=== PATIENT | female | born 1960 | race Caucasian/White ===

== ENCOUNTER 2020-06-30 16:25 | Inpatient (IN) | payer OTHER, SELFPAY ==
[2020-06-30] VITALS (33 sets, daily range): BP systolic 0–217; BP diastolic 0–88; PULSE 0–131; RESP 12–29; TEMP 33.2–38.4; O2SAT 97–100; BMI 24.9
--- NOTE | ~2020-06-30 | XR_ITS ---
EXAMINATION: XR abdomen/kub 1V DATE: 07/01/2020 02:59 INDICATION: Abdominal distention. TECHNIQUE: A supine view of the abdomen on 2 radiographs was obtained. COMPARISON: Abdomen radiograph 06/30/2020 FINDINGS: The small bowel is normal in caliber. There is mild gaseous distention of the colon. The na sogastric tube tip is in the stomach. IMPRESSION: 1. Mild gaseous distention of the colon, likely adynamic ileus. Reviewed, dictated and finalized at location A.
--- NOTE | ~2020-06-30 | XR_ITS ---
EXAMINATION: XR chest 1V portable DATE: 07/02/2020 05:31 INDICATION: Respiratory failure. TECHNIQUE: A single frontal view of the chest was obtained. COMPARISON: Chest single view 06/30/2020 FINDINGS: The lungs are hyperexpanded, consistent with emphysema. There is mild scarring at the lung apices. No pleural effusion or pneumothorax. The heart size is normal. The endotracheal tube tip is 6 .7 cm above the bronson. A right internal jugular central venous catheter is seen with tip in the righ t atrium. The nasogastric tube tip is beyond the inferior margin of the radiograph, but at least to t he stomach. Waffle-pattern material overlies the patient, which decreases sensitivity. IMPRESSION: 1. Emphysema. 2. Mild scarring at the lung apices. Reviewed, dictated and finalized at location A.
--- NOTE | ~2020-06-30 | CT_ITS ---
EXAMINATION: CT brain wo con INDICATION: Fixed and dilated left pupil status post cardiac arrest COMPARISON: 1733 hours TECHNIQUE: Standard unenhanced head CT. The dose-length product (DLP) was 681.00 mGy-cm. The mA was a djusted according to patient size. Iterative reconstruction technique was employed. FINDINGS: There is no intracranial hemorrhage or abnormal mass lesion. There are developing areas of low-attenuation involving the parietal and occipital lobes and to a lesser extent the frontal and tem poral lobes. The ventricles are normal. The basal cisterns are patent. The orbits are normal. The par anasal sinuses, mastoids and calvarium are normal. IMPRESSION: 1. Evolving intracranial findings consistent with cerebral edema and/or infarction. These findings we re discussed with Jennyfer Horton PA-C at 2356 hours on 06/30/2020. Reviewed, dictated and finalized at location A. IMPRESSION: 1. Evolving intracranial findings consistent with cerebral edema and/or infarct ion. These findings were discussed with Jennyfer Horton PA-C at 2356 hours on 06/30/2020.
--- NOTE | ~2020-06-30 | XR_ITS ---
EXAMINATION: XR abdomen NG/feed tube insert EXAM DATE: 06/30/2020 16:53 INDICATION: Orogastric tube insertion. TECHNIQUE: Frontal projection(s) of the abdomen for interpretation. There is no prior study for uma mccabe. FINDINGS: Feeding tip and side-port project over the gastric bubble, adequate. Nonspecific but nonobs tructive bowel gas pattern. There is no organomegaly. IMPRESSION: Feeding tube in position. Reviewed, dictated and finalized at location A. IMPRESSION: Feeding tube in position.
--- NOTE | ~2020-06-30 | XR_ITS ---
EXAMINATION: XR chest port-a-cath/central INDICATION: Central line insertion TECHNIQUE: Portable AP view the chest is obtained at 1930 hours COMPARISON: 1649 hours FINDINGS: A right internal jugular central venous catheter has been inserted which ends with its tip at the superior cavoatrial junction. There is a pneumothorax. The endotracheal tube ends approximatel y 8 cm above the bronson. The nasogastric tube is followed as far as the stomach. The heart size is no rmal. There is no pleural effusion. Interstitial opacities persist in the upper lung zones with sligh t improvement. IMPRESSION: 1. Right internal jugular catheter insertion without pneumothorax. 2. Mild improvement in interstitial opacities of the upper lung zones which could reflect pneumonia v ersus pulmonary edema. Reviewed, dictated and finalized at location A. IMPRESSION: 1. Right internal jugular catheter insertion without pneumothorax. 2. Mild improvement in interstitial opacities of the upper lung zones which cou ld reflect pneumonia versus pulmonary edema.
--- NOTE | ~2020-06-30 | US_ITS ---
EXAMINATION: US renal BI EXAM DATE: 07/01/2020 09:48 INDICATION: Acute kidney insufficiency. TECHNIQUE: Multiple grayscale and Doppler images of the kidneys were obtained (by a technologist who performed the scan) and subsequently reviewed. There is no prior study for comparison. FINDINGS: Right kidney: There is normal contour and echogenicity. It measures 10.6 x 4.5 x 4.6 centimeters. T here are no focal renal lesions identified. Mild hydronephrosis. Left kidney: There is normal contour and echogenicity. It measures 9.7 x 5.4 x 4.9 centimeters. The re are no focal renal lesions identified. There is no hydronephrosis. Bladder not identified, reportedly Hamilton catheter was in position. IMPRESSION: Mild right hydronephrosis. Reviewed, dictated and finalized at location A. IMPRESSION: Mild right hydronephrosis.
--- NOTE | ~2020-06-30 | CT_ITS ---
EXAMINATION: CT brain wo con INDICATION: Cardiac arrest COMPARISON: None TECHNIQUE: Standard unenhanced head CT. The dose-length product (DLP) was 832.33 mGy-cm. The mA was a djusted according to patient size. Iterative reconstruction technique was employed. FINDINGS: Motion artifact slightly limits the examination. There is no intracranial hemorrhage, acute infarction, or abnormal mass lesion. The ventricles are normal. There is no abnormal mass effect or midline shift. There is questionable loss of phelan-white matter differentiation. The basal cisterns ar e patent. Changes in the globes are likely from ocular lens surgery. The paranasal sinuses, mastoids and calvarium are normal. IMPRESSION: 1. Possible loss of phelan-white matter differentiation which could reflect anoxic brain injury. Contin ued neurologic assessment is recommended. Reviewed, dictated and finalized at location A. IMPRESSION: 1. Possible loss of phelan-white matter differentiation which could reflect anoxi c brain injury. Continued neurologic assessment is recommended.
--- NOTE | ~2020-06-30 | XR_ITS ---
EXAMINATION: XR chest ET placement EXAM DATE: 06/30/2020 16:53 INDICATION: Cardiac arrest. Intubated. TECHNIQUE: Portable AP frontal chest x-ray was obtained. Comparison is made to prior examination from 03/29/2015. FINDINGS: Endotracheal tube tip is 6.5 centimeters above the bronson. This could be safely advanced 2 cm. There is a nasogastric tube seen with tip collimated off the study, but below the left hemidiaph ragm. There is upper lung zone prominent reticulation, could be edema. No confluent consolidation or pneumothorax. Cardiomediastinal silhouette is normal. Some chronic hyperinflation. IMPRESSION: 1. ET tube could be safely advanced 2 cm. 2. Symmetrical indistinct reticulation, could be pulmonary edema. Reviewed, dictated and finalized at location A.
[2020-06-30] MEDS: SODIUM CHLORIDE 0.9% IV 1,000 ML 999 ML IV CONT ×2 (16:28→16:46)
--- NOTE | 2020-06-30 16:28 | ECG_ITS ---
Measurements Intervals Terry Rate: 91 P: AL: 0 QRS: 113 QRSD: 153 T: -59 QT: 376 QTc: 464 Interpretive Statements ACCELERATED JUNCTIONAL RHYTHM FREQUENT VENTRICULAR PREMATURE COMPLEXES RIGHT AXIS DEVIATION INTRAVENTRICULAR CONDUCTION DELAY INFERIOR ST ELEVATION MYOCARDIAL INJURY- ACUTE ABNORMAL ECG Electronically Signed On 06-30-2020 16:50:32 CDT by Jer Corrales D.O.
--- NOTE | 2020-06-30 16:41 | ED.CPR ---
HPI - CPR General Chief Complaint: Cardiac Arrest/CPR Stated Complaint: ROSC History of Present Illness HPI narrative: About an hour prior to arrival she was on the phone with her daughter c/o not being able to stand up without passing out. She then went unresponsive. When EMS arrived about 20 minutes later they found her unresponsive. At that time she was in V-fib. She did have ROSC. An EKG was done showing elevation in multiple leads. A STEMI was declared in the Field. She then went into asystole and CPR was resumed. On arrival here she is estimated to have been down for about 45-50 minutes. history limited by medical condition Related Data Allergies Allergy/AdvReac Type Severity Reaction Status Date / Time No Known Allergies Allergy Unverified 03/29/15 15:32 Review of Systems Review of Systems: ROS unobtainable: Yes unobtainable due to medical condition PMFSH Comments Unknown medical history Exam Const: Other: Severe distress. Unresponsive HENMT: Other: ET tube in place Eyes: Other: Pupils fixed and dilated Neck: Neck: normal visual inspection Resp: Other: Clear breath sounds with bagging Cardio: Other: Pulseless GI: GI Palp: Yes Soft to palpation Skin: Other: mottled Neuro: Other: unresponsive Course Vital Signs Vital signs: Vital Signs Temperature 34.8 C L 06/30/20 16:24 Pulse Rate 0 L 06/30/20 16:24 Respiratory Rate 12 06/30/20 16:24 Blood Pressure 0/0 L 06/30/20 16:24 Pulse Oximetry 99 06/30/20 16:24 Temperature 34.8 C L 06/30/20 16:24 Pulse Rate 79 06/30/20 17:44 Respiratory Rate 12 06/30/20 16:24 Blood Pressure 47/32 L 06/30/20 16:45 Pulse Oximetry 100 06/30/20 17:44 Procedures Central Line Placement Right IJ: Central Line Date: 06/30/20 Central Line Time: 19:26 Discussed w/ the patient/family/POA,the placement of a central venous catheter, including its clinical necessity/indication & associated potential risks, benifits and alternatives.: Yes The patient/family/POA understand(s) and acknowledge(s) the need to proceed with central venous catheter insertion as an important element of the patient's clinical management.: Yes Time Out Performed: Yes Patient Placed on Monitor/Pulse Ox: Yes Max. Sterile Barrier Technique: Caps, large sterile sheet and hand hygiene Central Line Prep: 2% chlorhexidine scrub and sterile drapes applied Technique: sterile prep/drape Local Anesthetic: none Ultrasound Used for Placement: Yes Central Line Lumen Inserted: triple Post Procedure: sutured in place, good blood return, all ports aspirated, flushed, capped and sterile dressing applied Post Procedure X-Ray: tip of catheter in good position and no pneumothorax seen Patient Tolerated Procedure: well Complications: none MDM - Cardiac Arrest/CPR MDM Narrative Medical decision making narrative: Case discussed with cardiology in detail. They do not feel that she is a good candidiate for PCI given that she likely has severe hypoxic brain injury. The do loosely endorse starting heparin. I discussed the patient w/ Dr. Cedeno. He agrees that she will not likely survive and has a very poor prognosis if she does. He will accept admission if the family chooses to have us proceed. I discussed the patient's condition in detail with the family. They want to do everything possible for the time being. Medical Records Attestation: I reviewed the patient's medical records. Lab Data Attestation: I reviewed the patient's lab results. Result diagrams: 06/30/20 16:34 06/30/20 16:34 Labs: Lab Results 06/30/20 06/30/20 06/30/20 Range/Units 16:34 16:34 16:34 WBC 3.6 L (4.5-10.0) K/mm3 RBC 2.26 L (4.2-5.4) M/mm3 Hgb 7.2 L (12.0-15.0) g/dL Hct 23.6 L (37.0-47.0) % MCV 104.4 H (80-100) fl MCH 31.9 (26-34) pg MCHC 30.5 L (32-36) g/dl RDW 12.3
[2020-06-30 16:42] LABS: Hematocrit 23.6 % (37.0-47.0); Hemoglobin 7.2 g/dL (12.0-15.0); Mean Corpuscular HGB Conc 30.5 g/dl (32-36); Mean Corpuscular Hemoglobin 31.9 pg (26-34); Mean Corpuscular Volume 104.4 fl (80-100); Mean Platelet Volume 9.5 fl (7.4-10.4); Platelet Count Result 126 k/mm3 (150-375); Red Blood Count 2.26 M/mm3 (4.2-5.4); Red Cell Distribution Width 12.3 % (11.5-14.5); White Blood Count 3.6 K/mm3 (4.5-10.0)
[2020-06-30] MEDS: EPINEPHrine INJ 1 MG in DEXTROSE 5% IN WATER 250 ML 75.3 MG IV CONT (16:45)
[2020-06-30 16:51] LABS: INR 1.5; Prothrombin Time 18.7 Seconds (11.1-14.7)
[2020-06-30 16:52] LABS: Partial Thromboplastin Time 55.8 SECONDS (22.3-36.8)
[2020-06-30 16:55] LABS: Alanine Aminotransferase 114 U/L (4-35); Albumin Level 2.7 g/dL (3.5-5.1); Alkaline Phosphatase 158 U/L (38-126); Anion Gap 14 mmol/L (8-16); Aspartate Amino Transferase 195 U/L (14-36); Bilirubin,Total 0.4 mg/dL (0.2-1.3); Blood Urea Nitrogen 14 mg/dL (7-17); Calcium 7.2 mg/dL (8.4-10.2); Carbon Dioxide 16 mmol/L (22-30); Chloride 107 mmol/L (98-107); Estimated Glomerular Filt Rate 57; Glucose 238 mg/dL (65-105); Lactic Acid Reflex 5.9 mmol/L (0.7-2.1); Potassium 4.2 mmol/L (3.4-5.0); Sodium 137 mmol/L (137-145)
[2020-06-30 17:05] LABS: Band Neutrophils Percent 3 % (0-6); Eosinophils Absolute Manual 0.03 K/mm3 (0.02-0.5); Eosinophils Percent Manual 1 % (0-4); Monocytes Absolute Manual 0.18 K/mm3 (0.1-0.90); Monocytes Percent Manual 5 % (3-9); Neutrophils Absolute Manual 1.08 K/mm3 (1.7-7.2); Neutrophils Percent Manual 27 % (46-73); Nucleated Red Blood Cells 1 %; Platelet Estimate Decreased (Adequate); Total Cells Counted 100
[2020-06-30 17:06] LABS: Hypochromasia 1+ (NORMAL)
[2020-06-30 17:08] LABS: Alveolar/Arterial O2 Gradient 80.2 mmHg; Base Excess ABG -18.2 mEq/l (+/-2.0); Fractional Inspired Oxygen 80 %; Methemoglobin ABG 0.3 %THb (0-1.5); Oxygen Content ABG 14.9 %vol (16.0-22.0); Oxygen Saturation ABG 99.7 % (95.0-100.0); Oxyhemoglobin 96.3 % THb (90.0-100.0); PO2 ABG 430.4 mmHg (80.0-100.0); PO2 FiO2 Ratio Arterial Blood 5.38 %; Reduced Hemoglobin 0.4 %THb (0-5.0); Total Hemoglobin 10.1 g/dL (12.0-18.0)
[2020-06-30 17:09] LABS: Arterial Blood Gas PEEP 5 cmH2O; Arterial Blood Gas Tidal Volume 500 ml; Arterial Blood Gas Vent Mode ASSIST CONTROL; Arterial Blood Gas Ventilator rate 16 /MIN; Device VENTILATOR; Modified Allen's Test Pass; Site Drawn LEFT RADIAL; pH ABG 6.975 (7.350-7.450)
[2020-06-30 17:10] LABS: NT Pro B Type Natriuretic Pept 3150 PG/ML (5-100)
--- NOTE | 2020-06-30 17:11 | PC.NURSE ---
agustín from lab called and states that pt has critical Tropion . Passed this on to charge nurse Coleen
[2020-06-30 17:15] LABS: Glucose Point of Care 308 (65-105)
[2020-06-30] MEDS: SODIUM BICARBONATE 8.4% 50 MEQ/50 ML SYRINGE 100 MEQ IV PUSH (17:18)
--- NOTE | 2020-06-30 17:45 | PM.IMHP ---
H&P: HPI History of Present Illness Date/Time: 06/30/20 17:45. The patient was seen and evaluated in the emergency department. Chief Complaint: Cardiac arrest. Narrative: This is a 59-year-old female smoker with COPD, hypercholesterolemia, and hypertension who presented to the emergency department earlier today via EMS from home in cardiac arrest. She and her spent about 8 days in [place], [place] and flew home sometime last week. According to her , she was doing really well in [place] and was ?the best I have seen her in a long time.? The patient's sister somewhat contraindicates this statement and tells me that the patient ?has been sick for a long time.? It sounds as though the patient has pretty significant COPD which causes her to get out of breath with daily activities. She is fatigued a majority of the time and in fact relies on energy drinks (consuming 6 to 8 per day) and Wal-Phed D (pseudoephedrine) 3 to 4 times per day at a higher dose than recommended. Upon her return from [place], the patient told her sister that she was feeling unwell with whole body aches, intermittent ?sternum pain? and dizziness with standing to the point where she has been sitting in a chair or lying down a majority of the time due to near-syncope. Family members go on to say that she has intermittently complained of shortness of breath and chest pain for some time at which they are not able to qualify. The patient reportedly continued to refuse to go to the doctor for evaluation. In any event, she was last seen in her usual state of health by her this morning when he got home from working overnight. She made him something for lunch and he retired to bed. A couple of hours later while on the telephone with her daughter, the patient reported that she was having episodes of dizziness and during the conversation her speech became slurred and she stopped responding. Daughter attempted to call the patient's and when he did not answer she called 911. Around 25 minutes had passed before the patient's daughter heard voices of EMS personnel in the background. Her was wakened to the sound of EMS entering her home. At that time the patient was found unresponsive on the couch and she received multiple defibrillations for VFib. Eventually ROSC was achieved and a 12 lead EKG demonstrated sinus bradycardia with ST elevations in the inferior leads with reciprocal changes in the anterior lateral leads. A STEMI was called in the field an en route to the hospital she went into asystole and CPR was once again resumed. CPR continued in the emergency department and several times the patient went into asystole or PEA before ROSC was once again obtained. By this time it was nearly 1 hour since she first went unresponsive. Unfortunately even with ROSC her blood pressures were very low and she has since been started on epinephrine drip. At the time my evaluation she is unresponsive and on no sedation. Neurologic exam is concerning with absence of corneal, cough, and gag reflexes. Review of Systems Review of Systems: Narrative: Unable to be obtained given her current clinical condition. 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 Chronic obstructive pulmonary disease Drug abuse The patient abuses [id number] pseudoephedrine and doses herself more than recommended 3 to 4 times per day. Hypercholesterolemia Hypertension Nicotine dependence Surgical History Surgical History (Updated 06/30/20 @ 23:09 by Jennyfer Horton PA-C) History of bilateral cataract extraction Family History Family History Mother Acute myocardial infarction ACS (acute coronary syndrome) Cerebrovascular accident Uterine cancer Cervical cancer Daughter AICD (automatic cardioverter/defibr
--- NOTE | 2020-06-30 18:02 | PM.CNCAR ---
Assessment and Plan Assessment and plan (1) Anoxic encephalopathy: Code(s): G93.1 - Anoxic brain damage, not elsewhere classified Status: Acute Assessment and Plan: Out of hospital VF arrest s/p multiple defibrillations with prolonged unresponsiveness, hypoperfusion, brief ROSC followed by asystole and repeated CPR, respiratory failure, shock with evidence of inferior ST elevations on EKG. Case discussed and EKG reviewed with Dr. Perez of Interventional Cardiology, patient not deemed a candidate for emergent coronary angiography given prolonged and ongoing resuscitation efforts with evidence of severe anoxic injury with estimated 30 minutes of VF prior to EMS arrival, persistent unresponsiveness despite pulse and intubation, infrequent isolated agonal breaths. CT head without bleeding but suggestion of loss of phelan-white matter differentiation concerning for anoxic brain injury. I updated patient's , sister, daughter, brother, and son-in-law regarding patient's condition, evidence severe anoxic brain injury secondary to prolonged ventricular fibrillation and ongoing resuscitative efforts. I reassured pt's family and most directly her daughter (who was on the phone with her mother when she collapsed) there was nothing she could have done to change this course. I explained that her mother had a pulse but has a low blood pressure and is not showing signs of significant neurologic activity at the time of my last assessment. I discussed the poor prognosis given prolonged anoxic brain injury that cannot be reversed with coronary angiography and low likelihood of survival. I reviewed their account of the history and as related by EMS, the ED attending. Discussed that as per discussion with Dr. Perez that emergent cardiac cath likelihood of survival with procedure is low and is not expected to alter her prognosis or neurologic recovery in light of the prolonged initial time in ventricular fibrillation which is incompatible with life preserving perfusion. In response to their questions I explained how VF results in a situation where the body and brain are not receiving necessary blood flow or oxygenation with causes severe and potentially irreversible harm not only the body but most importantly the brain. All questions answered to their satisfaction. The verbalized appreciation for communicating with them and care. I expressed my deepest sympathies regarding this very unfortunate and tragic situation. They indicated they understood the circumstances and verbalized how little can be done to reverse the estimated 45-60 min of inadequate perfusion to her brain and that her neurologic status is the most critical issue. I also explained I wanted to update them, answer any questions they may have as I did not want them to be unformed as to her status as they had not been updated the ED physician. I informed them of the extent of my involvement and discussions with Interventional Cardiology as I came to assess the patient initially but that I cannot/do not perform cardiac interventions. (2) VF (ventricular fibrillation): Code(s): I49.01 - Ventricular fibrillation Status: Acute Assessment and Plan: as above. Hypothermia protocol per ED/Critical Care to provide support for any meaningful neurologic recovery. (3) STEMI (ST elevation myocardial infarction): Code(s): I21.3 - ST elevation (STEMI) myocardial infarction of unspecified site Status: Acute Assessment and Plan: By EKG criteria for inferior STEMI. Family reports at least weeks of patient feeling poorly with progressive SOB prior to out of hospital arrest. Heparin gtt, ASA, statin. (4) Shock: Code(s): R57.9 - Shock, unspecified Status: Acute Assessment and Plan: Epinephrine gtt pressor support. cardiogenic. Severe anemia, mild thrombocytopenia on CBC also highly concerning. Repeat CBC and follow. Check coags PT/INR. Lactic acid eleva
--- NOTE | 2020-06-30 18:27 | PC.NURSE ---
1625 EMS arrived to room, CPR continued in progress with mechanical compressions. 1626 epi given 1628 pulse check, PEA, continue CPR 1629 epi given 1631 pulse check, pulse back, ROSC, sinus rhythm
[2020-06-30 19:39] LABS: Reflex Lactic Acid Yes or No Add Lactic
--- NOTE | 2020-06-30 19:42 | PC.NURSE ---
Pt. blood pressure improving. Epi dripped paused. ERP aware and is ok with order.
[2020-06-30] MEDS: HEPARIN SODIUM 5,000 UNITS/ML VIAL 4000 UNITS IV PUSH (19:55)
[2020-06-30] MEDS: HEPARIN SOD/D5W 100 UNITS/ML 25,000 UNITS/250 ML BAG 8 UNITS IV CONT (19:57)
[2020-06-30] MEDS: PROPOFOL IV EMULSION 100 ML 2.38 MG IV CONT (20:55)
--- NOTE | 2020-06-30 21:48 | ADMGEN ---
This patient, Angelia Huitron, was admitted to Intensive Care Unit-9 on 06-30-20 at 2140. Patient/family oriented to hospital policies and general routines including ID bracelet, bed and alarms, visiting hours, pain management, procedures, bathroom and other care routines, personal items, smoking policy, room service/diet, and visiting hours. Information on how to activate the Rapid Response Team has been discussed. Patient/Family are encouraged to report perceived risks to care and to ask questions if they do not understand what they are told or what they should do.
--- NOTE | 2020-06-30 22:00 | ADMGEN ---
This patient, Angelia Huitron, was admitted to Intensive Care Unit-9. Patient/family oriented to hospital policies and general routines including ID bracelet, bed and alarms, visiting hours, pain management, procedures, bathroom and other care routines, personal items, smoking policy, room service/diet, and visiting hours. Information on how to activate the Rapid Response Team has been discussed. Patient/Family are encouraged to report perceived risks to care and to ask questions if they do not understand what they are told or what they should do.
[2020-06-30 22:48] LABS: Partial Thromboplastin Time 194.7 SECONDS (22.3-36.8)
[2020-06-30 23:01] LABS: Alveolar/Arterial O2 Gradient 70.2 mmHg; Base Excess ABG -10.8 mEq/l (+/-2.0); Fractional Inspired Oxygen 45 %; HCO3 ABG 16.1 mEq/l (22.0-26.0); Methemoglobin ABG 0.3 %THb (0-1.5); Oxygen Content ABG 20.4 %vol (16.0-22.0); Oxygen Saturation ABG 99.2 % (95.0-100.0); Oxyhemoglobin 97.3 % THb (90.0-100.0); PCO2 ABG 39.2 mmHg (35.0-45.0); PO2 ABG 206.1 mmHg (80.0-100.0); PO2 FiO2 Ratio Arterial Blood 4.58 %; Reduced Hemoglobin 0.4 %THb (0-5.0); Total Hemoglobin 14.6 g/dL (12.0-18.0)
[2020-06-30 23:02] LABS: Arterial Blood Gas PEEP 5 cmH2O; Arterial Blood Gas Tidal Volume 500 ml; Arterial Blood Gas Vent Mode CMV; Arterial Blood Gas Ventilator rate 16 /MIN; Device VENTILATOR; Modified Allen's Test Unable to perform; Site Drawn RIGHT RADIAL; pH ABG 7.231 (7.350-7.450)
[2020-06-30 23:12] LABS: Hematocrit 42.7 % (37.0-47.0); Hemoglobin 14.3 g/dL (12.0-15.0); Mean Corpuscular HGB Conc 33.5 g/dl (32-36); Mean Corpuscular Hemoglobin 32.2 pg (26-34); Mean Corpuscular Volume 96.2 fl (80-100); Mean Platelet Volume 9.2 fl (7.4-10.4); Platelet Count Result 329 k/mm3 (150-375); Red Blood Count 4.44 M/mm3 (4.2-5.4); Red Cell Distribution Width 12.3 % (11.5-14.5); White Blood Count 22.8 K/mm3 (4.5-10.0)
[2020-06-30 23:17] LABS: INR 1.3; Prothrombin Time 16.4 Seconds (11.1-14.7)
[2020-06-30 23:25] LABS: Lactic Acid Reflex 4.3 mmol/L (0.7-2.1)
[2020-06-30 23:26] LABS: Alanine Aminotransferase 333 U/L (4-35); Albumin Level 3.9 g/dL (3.5-5.1); Alkaline Phosphatase 436 U/L (38-126); Anion Gap 12 mmol/L (8-16); Bilirubin,Total 0.9 mg/dL (0.2-1.3); Blood Urea Nitrogen 24 mg/dL (7-17); Calcium 8.6 mg/dL (8.4-10.2); Carbon Dioxide 20 mmol/L (22-30); Chloride 106 mmol/L (98-107); Estimated CRCL calculation 23 ml/min; Estimated Glomerular Filt Rate 23; Glucose 109 mg/dL (65-105); Magnesium 2.8 mg/dL (1.6-2.3); Potassium 5.1 mmol/L (3.4-5.0); Sodium 138 mmol/L (137-145); Troponin I > 80.000 ng/mL (0.000-0.034)
[2020-06-30 23:55] LABS: Aspartate Amino Transferase 900 U/L (14-36); Creatine Kinase 5763 U/L (30-135)
[2020-06-30] MEDS: NOREPINEPHRINE 8 MG/D5W 250 ML 8 MG/250 ML BAG 18.75 MG IV CONT (23:55)
[2020-06-30] MEDS: LACTATED RINGERS 1,000 ML 100 ML IV CONT (23:57)
[2020-07-01] VITALS (58 sets, daily range): BP systolic 74–154; BP diastolic 40–100; PULSE 74–103; RESP 17–33; TEMP 31.9–38.4; O2SAT 91–100; BMI 25.2
[2020-07-01] LABS: Hemoglobin A1C 5.5 % (<5.7)
[2020-07-01] MEDS: SODIUM BICARBONATE 8.4% 150 MEQ in DEXTROSE 5% 1,000 ML 950 ML 75 MEQ IV CONT (01:08)
[2020-07-01] MEDS: CENTRAL LINE FLUSH 10 ML IV PUSH ×5 (01:28→21:00)
--- NOTE | 2020-07-01 01:35 | WPDPROCEDUR ---
Procedures Arterial Line Arterial Line Date: 07/01/20 Arterial Line Time: 00:45 Perfomed Emergently - Given emergent patient conditions, temporal constraints may have precluded informed consent: Yes Time Out Performed: Yes Patient Position: other (Vascular position) [employer] Prep: sterile gown, sterile gloves, mask and hat Site: left, right and femoral Site Prep: chlorhexidine and sterile drape Technique used: ultrasound-guided Size (Gauge): 20 Length: 12 cm Closure/Dressing: suture, transparent dressing, hemostatic product, antimicrobial product and securement product Patient tolerated procedure: well Additional comments: Initially a right femoral arterial line was attempted. Arterial blood return was obtained on both attempts however the guidewire would not feed and was kinking. Subsequently the left groin was prepped and the left femoral artery was accessed. Her turn of pulsatile blood return guidewire advanced easily. His catheter advanced over guidewire without difficulty. Return of arterial blood flow through arterial line. Line was secured with sutures. Sterile dressing was applied. Attempt to maintain sterile technique was made throughout the entire procedure. Sterile ultrasound probe cover was used.
--- NOTE | 2020-07-01 01:40 | P.PNCROSS_ITS ---
Event Note Event Note Event Note: Nursing staff notified me while I was in the unit that the patient was hypotensive just before midnight. Patient was on cooling protocol. The patient had just returned from a repeat CT of the brain which demonstrated worsening/evolving anoxic brain injury. Patient had epinephrine infusing but was tachycardic with heart rates in the 110s. Levophed was ordered as patient blood pressure was 70/58. The I placed a arterial line. The patient's Levophed was increased to 20 during the course of the procedure her as her blood pressures again dropped to the 50s. With increased Levophed the patient's blood pressure improved to low 100s systolic. The patient's labs were reviewed and demonstrated there hemoglobin 8 jumped from 7 up to 14. She had evidence of shocked liver. Her PTT was elevated at 194. The patient's heparin drip had been discontinued due to about 300 mL of frankly bloody drainage from patient's OG tube. Her abdomen had become markedly more distended since admission. The patient remains unresponsive to painful stimuli. She had been on propofol which has been discontinued. All labs and imaging studies have been reviewed Assessment and plan: 1. cardiogenic shock: Patient has been initiated on pressor therapy with Levophed. Her blood pressures have improved. Arterial line has been placed for close monitoring of blood pressures. Director Of Corporate Sponsorships was contacted and updated as to the patient's condition and clinical course. He agrees with current plan of care. 2. Supratherapeutic PTT evidence of upper GI bleeding: Heparin drip has been discontinued. Will monitor H&H closely. However patient is H&H has paradoxically increased up to 14. Protonix has been ordered. 3. Anoxic brain injury with cerebral edema: Mannitol has been ordered per protocol. Overall poor prognosis. 35 minutes spent in critical care activities in exclusion of procedures. Due to a high probability of clinically significant, life threatening deterioration, the patient required my highest level of preparedness to intervene emergently and I personally spent this critical care time directly and personally managing the patient. This critical care time included obtaining a history; examining the patient; pulse oximetry; ordering and review of studies; arranging urgent treatment with development of a management plan; evaluation of patient's response to treatment; frequent reassessment; and discussions with other providers. It was exclusive of separately billable procedures and treating other patients and teaching time. Please see Assessment and Plan section and the rest of the note for further information on patient assessment and treatment.
--- NOTE | 2020-07-01 01:56 | ECHO_ITS ---
Patient Info Name: Angelia Huitron Age: 59 years : 1960 Gender: Female Ht: 66 in Wt: 156 lbs BSA: 1.83 m2 BP: 136 / 57 mmHg Heart Rhythm: Sinus Rhythm Exam Date: 07/01/2020 7:18 AM Exam Location: [facility] Patient Status: Inpatient Admit Date: 06/30/2020 Staff Ordering Physician: Suzan Ryan DO Full Stack Software Engineer: Alber Nunn RDCS, RT Attending Provider: Jhon Nelson MD Referring Physician: Connor FIELD; Exam Type: CA echo doppler color flow Study Info Indications I46.9 - Cardiac arrest, cause unspecified Complete two-dimensional, color flow and Doppler transthoracic echocardiogram is performed. Strain analysis performed. Summary 1. Complete two-dimensional, color flow and Doppler transthoracic echocardiogram is performed. 2. Left ventricular systolic function is mildly reduced, estimated at 45-50%. There is hypokinesis of the mid and basal inferior and basal inferolateral kerns. 3. Left ventricular chamber dimension is normal. 4. There is mildly increased left ventricular wall thickness. 5. The left ventricular diastolic function is grade I diastolic dysfunction. 6. There is mild aortic valve regurgitation. 7. There is mild mitral valve regurgitation. 8. There is mild tricuspid valve regurgitation. 9. No pulmonary hypertension, estimated pulmonary arterial systolic pressure is 25 mmHg. Left Ventricle Left ventricular systolic function is mildly reduced, estimated at 45-50%. There is hypokinesis of the mid and basal inferior and basal inferolateral kerns. Left ventricular chamber dimension is normal. There is mildly increased left ventricular wall thickness. The left ventricular diastolic function is grade I diastolic dysfunction. Global longitudinal strain is moderately elevated at -11 %. Right Ventricle Right ventricular chamber dimension is normal. Right ventricular systolic function is reduced. Left Atria Left atrial chamber dimension is normal. Right Atria Right atrial chamber dimension is normal. Aortic Valve The aortic valve is not well visualized. There is no aortic valve stenosis. There is mild aortic valve regurgitation. Pulmonic Valve The pulmonic valve is not well visualized. Mitral Valve The mitral valve has normal leaflets. There is mild mitral valve regurgitation. Tricuspid Valve The tricuspid valve leaflets are normal. There is mild tricuspid valve regurgitation. No pulmonary hypertension, estimated pulmonary arterial systolic pressure is 25 mmHg. Pericardium/Pleural The pericardium appears normal. There is trivial pericardial effusion. Inferior Vena Cava Normal inferior vena cava with >50% collapse upon inspiration consistent with normal right atrial pressure, 5 mmHg. Aorta The aortic root size at the sinus of Valsalva is normal. Left Ventricular Outflow Tract Name Value Normal LVOT 2D LVOT Diameter 2.0 cm LVOT Doppler LVOT Peak Gradient 5 mmHg LVOT Mean Gradient 2 mmHg LVOT VTI 16 cm LVOT VTI/AV VTI Ratio 0.8
[2020-07-01 02:21] LABS: Alveolar/Arterial O2 Gradient 25.7 mmHg; Carboxyhemoglobin 2.1 % THb (0-2.0); Fractional Inspired Oxygen 30 %; Methemoglobin ABG 0.2 %THb (0-1.5); Oxygen Content ABG 17.3 %vol (16.0-22.0); Oxygen Saturation ABG 97.8 % (95.0-100.0); Oxyhemoglobin 96.2 % THb (90.0-100.0); PCO2 ABG 40.2 mmHg (35.0-45.0); Reduced Hemoglobin 1.5 %THb (0-5.0); Total Hemoglobin 12.6 g/dL (12.0-18.0); pH ABG 7.094 (7.350-7.450)
[2020-07-01 02:22] LABS: Arterial Blood Gas PEEP 5 cmH2O; Arterial Blood Gas Tidal Volume 450 ml; Arterial Blood Gas Vent Mode CMV; Arterial Blood Gas Ventilator rate 22 /MIN; Device VENTILATOR; Site Drawn ARTLINE
[2020-07-01] MEDS: SODIUM BICARBONATE 8.4% 50 MEQ/50 ML SYRINGE 100 MEQ IV PUSH ×2 (02:57→08:18)
[2020-07-01 03:14] LABS: Folic Acid > 20.0 ng/mL (2.76->20); Vitamin B12 > 1000.0 pg/mL (239-931)
[2020-07-01 03:15] LABS: Iron 17 ug/dL (37-170); Percent Iron Saturation 17 % (20-50)
[2020-07-01 03:43] LABS: Glucose Point of Care 117 (65-105)
[2020-07-01 04:30] LABS: Glucose Point of Care 155 (65-105)
[2020-07-01 04:46] LABS: Basophils Absolute Auto 0.1 K/mm3 (0.0-0.1); Basophils Percent Auto 0.3 % (0.2-1.2); Eosinophils Absolute Auto 0.4 K/mm3 (0-0.3); Hematocrit 37.1 % (37.0-47.0); Hemoglobin 12.1 g/dL (12.0-15.0); Immature Granulocyte Absolute 0.11 K/mm3 (0.00-0.031); Immature Granulocyte Percent A 0.6 % (0-0.5); Lymphocytes Absolute Auto 0.95 K/mm3 (0.9-3.2); Lymphocytes Percent Auto 5.4 % (18.3-44.2); Mean Corpuscular HGB Conc 32.6 g/dl (32-36); Mean Corpuscular Hemoglobin 31.4 pg (26-34); Mean Corpuscular Volume 96.4 fl (80-100); Monocytes Absolute Auto 0.6 K/mm3 (0.1-0.6); Monocytes Percent Auto 3.6 % (2.6-8.5); Neutrophils Absolute Auto 15.6 K/mm3 (1.3-6.7); Neutrophils Percent Auto 88.1 % (45.5-73.1); Platelet Count Result 228 k/mm3 (150-375); Red Blood Count 3.85 M/mm3 (4.2-5.4); Red Cell Distribution Width 12.3 % (11.5-14.5); White Blood Count 17.7 K/mm3 (4.5-10.0)
[2020-07-01 04:56] LABS: INR 1.7; Prothrombin Time 20.5 Seconds (11.1-14.7)
[2020-07-01 05:34] LABS: Lactic Acid Reflex 7.3 mmol/L (0.7-2.1)
[2020-07-01 05:46] LABS: Albumin Level 2.9 g/dL (3.5-5.1); Alkaline Phosphatase 270 U/L (38-126); Anion Gap 14 mmol/L (8-16); Bilirubin,Total 0.7 mg/dL (0.2-1.3); Blood Urea Nitrogen 30 mg/dL (7-17); Carbon Dioxide 24 mmol/L (22-30); Chloride 95 mmol/L (98-107); Estimated CRCL calculation 21 ml/min; Estimated Glomerular Filt Rate 20; Glucose 174 mg/dL (65-105); Magnesium 2.6 mg/dL (1.6-2.3); Potassium 4.2 mmol/L (3.4-5.0); Sodium 133 mmol/L (137-145)
[2020-07-01 05:47] LABS: Creatine Kinase 7436 U/L (30-135)
[2020-07-01 05:53] LABS: Glucose Point of Care 202 (65-105)
[2020-07-01 06:02] LABS: Aspartate Amino Transferase 4774 U/L (14-36)
[2020-07-01 06:03] LABS: Alanine Aminotransferase 3187 U/L (4-35)
[2020-07-01 06:24] LABS: Alveolar/Arterial O2 Gradient 69.4 mmHg; Base Excess ABG -6.2 mEq/l (+/-2.0); Carboxyhemoglobin 2.9 % THb (0-2.0); Fractional Inspired Oxygen 30 %; HCO3 ABG 20.9 mEq/l (22.0-26.0); Methemoglobin ABG 0.1 %THb (0-1.5); Oxygen Content ABG 16.7 %vol (16.0-22.0); Oxygen Saturation ABG 95.4 % (95.0-100.0); Oxyhemoglobin 93.1 % THb (90.0-100.0); PCO2 ABG 47.9 mmHg (35.0-45.0); PO2 ABG 88.2 mmHg (80.0-100.0); PO2 FiO2 Ratio Arterial Blood 2.94 %; Reduced Hemoglobin 3.9 %THb (0-5.0); Total Hemoglobin 12.7 g/dL (12.0-18.0)
[2020-07-01 06:26] LABS: Site Drawn ARTLINE; pH ABG 7.258 (7.350-7.450)
[2020-07-01 06:27] LABS: Glucose Point of Care 196 (65-105)
[2020-07-01 06:27] LABS: Arterial Blood Gas PEEP 5 cmH2O; Arterial Blood Gas Tidal Volume 450 ml; Arterial Blood Gas Vent Mode CMV; Arterial Blood Gas Ventilator rate 22 /MIN; Device VENTILATOR
[2020-07-01] MEDS: NOREPINEPHRINE 8 MG/D5W 250 ML 8 MG/250 ML BAG 18.75 MG IV CONT (08:05)
[2020-07-01] MEDS: SODIUM BICARBONATE 8.4% 100 MEQ in WATER, STERILE FOR INJECTION 1,000 ML 150 MEQ IV CONT ×2 (08:09→15:11)
[2020-07-01] MEDS: CALCIUM CHLOR 1,000MG/100ML NS 1,000 MG/100 ML BAG 100 MG IVPB (08:12)
[2020-07-01 08:16] LABS: Glucose Point of Care 189 (65-105)
[2020-07-01] MEDS: PANTOPRAZOLE SODIUM IV 40 MG VIAL IV PUSH ×2 (08:16→20:59)
--- NOTE | 2020-07-01 08:43 | PM.PNCARD ---
Progress Note: A&P Additional Plan 59-year-old woman with: Out of hospital ventricular fibrillation arrest with ECG compatible with ST-elevation [place] following resuscitation. Unfortunately her down time was long enough where it seemed obvious she was not a candidate for emergency PCI is there is no realistic hope for neurological recovery period. CT scan is consistent with severe anoxic injury. Patient is now on hypothermia protocol and being supported hemodynamically. At this point aggressive support will be continued and neurological outcome will guide further decision process. Prognosis for recovery appears to be extremely poor Norris Perez MD [facility] Subjective Date/time seen: Date of service: 07/01/20 08:43 Interval history: 59-year-old white female with: A QT ST-elevation [place] unfortunately presenting after prolonged out of hospital ventricular fibrillation arrest with long resuscitation time before spontaneous circulation was restored. The clinical decision was made on admission that the patient was not a candidate for emergency revascularization since there was no realistic hope for neurological recovery. According to the chart her principal comorbidity is significant COPD with smoking. Patient is in ICU room 9. Intubated neurologically unresponsive/obtunded with no sedation. On hypothermia protocol. Review of Systems Review of Systems: ROS unobtainable: Yes unobtainable due to mental status Exam Const: Other: Intubated unresponsive white female HENMT: Mouth: Yes moist mucous membranes Eyes: Sclera: sclerae normal Neck: Neck: supple and no JVD Resp: Other: Some central rhonchi are noted otherwise relatively good breath sounds good aeration bilaterally Cardio: Rate: regular rate Rhythm: regular rhythm GI: GI Palp: Yes Soft to palpation Skin: Other: Mottled Neuro: Other: Unresponsive/obtunded Extrem: Other: No edema good distal pulses Objective Data Vital Signs Vital Signs: Vital Signs - 24 hr 06/30/20 16:24 06/30/20 16:30 06/30/20 16:45 Temperature 34.8 C L Pulse Rate 0 L 96 78 Respiratory Rate 12 14 Blood Pressure 0/0 L 217/84 H 47/32 L Pulse Oximetry 99 100 06/30/20 16:46 06/30/20 16:50 06/30/20 17:00 Temperature 33.2 C L Pulse Rate 74 76 84 Respiratory Rate 24 H Blood Pressure 117/25 L Pulse Oximetry 99 100 06/30/20 17:07 06/30/20 17:14 06/30/20 17:43 Temperature 36.3 C L 36.3 C L Pulse Rate 73 74 79 Respiratory Rate 16 17 16 Blood Pressure 66/33 L 79/64 L 103/47 L Pulse Oximetry 100 99 99 06/30/20 17:44 06/30/20 17:50 06/30/20 18:00 Temperature 36.3 C L Pulse Rate 79 79 Respiratory Rate 18 Blood Pressure 106/88 Pulse Oximetry 100 100 98 06/30/20 18:10 06/30/20 18:30 06/30/20 18:50 Temperature 36.3 C L 36.4 C 36.6 C Pulse Rate 83 83 85 Respiratory Rate 15 14 18 Blood Pressure 98/56 L 111/70 152/55 H Pulse Oximetry 99 99 99 06/30/20 19:03 06/30/20 19:12 06/30/20 19:15 Temperature 36.6 C 36.7 C 36.7 C Pulse Rate 99 97 99 Respiratory Rate 21 H 20 23 H Blood Pressure 152/55 H Pulse Oximetry 100 100 100 06/30/20 19:21 06/30/20 19:25 06/30/20 19:33 Temperature 36.8 C 36.9 C Pulse Rate 101 H 105 H 107 H Respiratory Rate 21 H 23 H Blood Pressure 138/88 138/88 Pulse Oximetry 100 100 06/30/20 20:55 06/30/20 21:14 06/30/20 21:18 Temperature 37.3 C Pulse Rate 123 H 121 H 123 H Respiratory Rate 26 H 28 H 26 H Blood Pressure 104/69 Pulse Oximetry 100 06/30/20 21:40 06/30/20 21:45 06/30/20 22:12 Temperature 38.4 C H 37.3 C Pulse Rate 128 H 128 H 126 H Respiratory Rate 24 H 26 H Blood Pressure 126/83 124/80 Pulse Oximetry 100 100 100 06/30/20 22:36 06/30/20 22:45 06/30/20 23:10 Temperature 38.4 C H Pulse Rate 125 H 120 H 131 H Respiratory Rate 27 H Blood Pressure 129/55 L Pulse Oximetry 99 100 06/30/20 23:15 06/30/20 23:45 06/30/20 23:55 Temperature 38.3 C H 37.4 C Pulse Rate 1
[2020-07-01 09:43] LABS: Glucose Point of Care 172 (65-105)
[2020-07-01 10:00] LABS: Add Urine Microscopic? YES; Appearance Urine Cloudy (Clear); Bacteria Urine Trace /hpf; Bilirubin Urine Negative (Negative); Blood Urine 2+ (Negative); Color Urine Yellow (Yellow); Glucose Urine UA 2+ mg/dL (Negative); Ketones Urine Negative (Negative); Leukocyte Esterase Ur Negative LEU/UL (Negative); Mucus Urine Rare /lpf; Nitrate Urine Negative (Negative); Protein Urine 2+ mg/dL (Negative); RBC Urine 21-50 /hpf (0-2); Urobilinogen Urine Negative mg/dL (<2.0); WBC Urine 21-30 /hpf
--- NOTE | 2020-07-01 10:00 | ECG_ITS ---
Measurements Intervals [place] Rate: 101 P: 75 CA: 158 QRS: 60 QRSD: 96 T: 119 QT: 429 QTc: 558 Interpretive Statements SINUS TACHYCARDIA ST-T WAVE ABNORMALITY IN ANTEROLAT/HIGH LAT LEADS- CONSIDER ISCHEMIA BASELINE ARTIFACT- I, II, III, AVR, AVL, AVF, V1-V6 ABNORMAL ECG Electronically Signed On 07-01-2020 11:46:20 CDT by Jer Corrales D.O.
[2020-07-01 10:19] LABS: Glucose Point of Care 151 (65-105)
[2020-07-01 10:33] LABS: Barbiturate Screen Urine Negative (Negative); Benzodiazepines Screen Urine Negative (Negative)
[2020-07-01 10:34] LABS: Cannabinoid Screen Urine Negative (Negative); Cocaine Screen Urine Negative (Negative); Methadone Screen Urine Negative (Negative); Opiate Screen Urine Negative (Negative); Phencyclidine Screen Urine Negative (Negative)
--- NOTE | 2020-07-01 10:43 | WPDCNINT ---
Assessment and Plan Assessment and plan (1) ST elevation (STEMI) myocardial infarction: Onset Date: ~06/30/20 Code(s): I21.3 - ST elevation (STEMI) myocardial infarction of unspecified site Status: Acute Assessment and Plan: Heparin was discontinued due to high risk of brain hemorrhage from anoxic brain injury with loss of phelan-white matter differentiation on the CT Aspirin had to be stopped because of GI bleed Hypotensive and not a candidate for beta-sejal Cardiology decided not to pursue emergent PCI due to anoxic injury Echocardiogram done and pending (2) Cardiac arrest: Code(s): I46.9 - Cardiac arrest, cause unspecified Status: Acute Assessment and Plan: VFib cardiac arrest likely secondary to [place] No recurrence while in ICU (3) Shock: Code(s): R57.9 - Shock, unspecified Status: Acute Assessment and Plan: Sepsis versus cardiogenic Echocardiogram has been done and is pending Continue Levophed IV fluids Culture sent On empiric Zosyn for aspiration pneumonia (4) VF (ventricular fibrillation): Code(s): I49.01 - Ventricular fibrillation Status: Acute Assessment and Plan: No recurrence since arrival to ICU Monitor and treat electrolytes (5) Anoxic brain injury: Code(s): G93.1 - Anoxic brain damage, not elsewhere classified Status: Acute Assessment and Plan: CT shows loss of phelan-white differentiation and clinical exam consistent with severe anoxic injury Continue TTM protocol Patient will be rewarmed tomorrow morning Head CT reviewed Check EEG tomorrow Consult neurology (6) Respiratory failure: Code(s): J96.90 - Respiratory failure, unspecified, unspecified whether with hypoxia or hypercapnia Status: Acute Assessment and Plan: ABG and chest x-ray reviewed Respirator increased 25 Repeat chest x-ray in the morning On empiric Zosyn for suspected aspiration (7) Shock liver: Code(s): K72.00 - Acute and subacute hepatic failure without coma Status: Acute Assessment and Plan: Monitor LFTs Check ammonia Will give vitamin K (8) GI bleed: Code(s): K92.2 - Gastrointestinal hemorrhage, unspecified Status: Acute Assessment and Plan: Heparin and aspirin discontinued Monitor hemoglobin IV PPI q.12 hours (9) YOANA (acute kidney injury): Code(s): N17.9 - Acute kidney failure, unspecified Status: Acute Assessment and Plan: Likely ATN secondary to cardiac arrest Renal ultrasound IV fluids with bicarb Monitor urine output (10) Rhabdomyolysis: Code(s): M62.82 - Rhabdomyolysis Status: Acute Assessment and Plan: IV fluids with bicarb Monitor and treat electrolytes DVT prophylaxis -SCDs Stress ulcer prophylaxis -PPI Nutrition -NPO Code Status - Full Code I spoke to patient's son at bedside in detail and updated him with patient's status. I explained to him in detail about patient's current status including anoxic brain injury, myocardial infarction, YOANA, respiratory failure and shock liver. Explained him the reasoning and potential benefits of TTM protocol. I also explained him that patient CT scan and neurological exam suggest of severe anoxic brain injury and her chances of meaningful functional recovery are very low. We also discuss code status. He stated that he will discuss with other family members before making any decision. He told me that they would like to give her all the chance but do not want prolonged if the chances of recovery are low Total Critical Care Time - 50 minutes Due to a high probability of clinically significant, life threatening deterioration, the patient required my highest level of preparedness to intervene emergently and I personally spent this critical care time directly and personally managing the patient. This critical care time included obtaining a history; examining the patient; pulse oximet
[2020-07-01 11:39] LABS: Glucose Point of Care 105 (65-105)
[2020-07-01] MEDS: PHYTONADIONE INJ 10 MG/ML AMP SUB-Q (11:49)
[2020-07-01 11:54] LABS: Partial Thromboplastin Time 37.7 SECONDS (22.3-36.8)
[2020-07-01 11:55] LABS: Ammonia 20 umol/L (9-30)
[2020-07-01 12:00] LABS: Lactic Acid Reflex 5.1 mmol/L (0.7-2.1)
[2020-07-01 12:16] LABS: Creatine Kinase 10197 U/L (30-135)
[2020-07-01 12:27] LABS: Base Excess ABG -0.1 mEq/l (+/-2.0); Device VENTILATOR; Fractional Inspired Oxygen 30 %; HCO3 ABG 26.6 mEq/l (22.0-26.0); Oxygen Content ABG 16.1 %vol (16.0-22.0); Oxygen Saturation ABG 94.4 % (95.0-100.0); PCO2 ABG 52.3 mmHg (35.0-45.0); PO2 ABG 77.5 mmHg (80.0-100.0); PO2 FiO2 Ratio Arterial Blood 2.58 %; Site Drawn ARTLINE; Total Hemoglobin 12.4 g/dL (12.0-18.0); pH ABG 7.324 (7.350-7.450)
[2020-07-01 12:28] LABS: Arterial Blood Gas PEEP 5 cmH2O; Arterial Blood Gas Tidal Volume 450 ml; Arterial Blood Gas Vent Mode CMV; Arterial Blood Gas Ventilator rate 25 /MIN
[2020-07-01 12:34] LABS: Glucose Point of Care 86 (65-105)
--- NOTE | 2020-07-01 13:26 | PC.NURSE ---
Patient wedding ring given to son Brenton.
[2020-07-01 13:27] LABS: Glucose Point of Care 92 (65-105)
[2020-07-01 14:41] LABS: Reflex Lactic Acid Yes or No Add Lactic
[2020-07-01 14:43] LABS: Glucose Point of Care 84 (65-105)
[2020-07-01 15:20] LABS: Glucose Point of Care 68 (65-105)
[2020-07-01 15:54] LABS: Lactic Acid 4.7 mmol/L (0.7-2.1)
[2020-07-01] MEDS: DEXTROSE 50% 25 GM/50 ML SYRINGE IV PUSH (16:25)
--- NOTE | 2020-07-01 16:32 | PM.IMPN ---
Progress Note: A&P Assessment and Plan (1) Cardiac arrest with ventricular fibrillation: Code(s): I46.9 - Cardiac arrest, cause unspecified; I49.01 - Ventricular fibrillation Status: Acute Assessment and Plan: Outside hospital VFib arrest with prolonged down time Her neurologic exam is concerning for anoxic brain injury. (2) ST elevation (STEMI) myocardial infarction: Onset Date: ~06/30/20 Code(s): I21.3 - ST elevation (STEMI) myocardial infarction of unspecified site Status: Acute Assessment and Plan: EKG demonstrated ST elevation inferior leads with reciprocal changes in the anterolateral leads. (3) Respiratory failure: Code(s): J96.90 - Respiratory failure, unspecified, unspecified whether with hypoxia or hypercapnia Status: Acute Assessment and Plan: Acute respiratory failure secondary to cardiac arrest. (4) Shock: Code(s): R57.9 - Shock, unspecified Status: Acute Assessment and Plan: Cardiogenic shock, currently on epinephrine drip to maintain adequate blood pressures. (5) Anoxic encephalopathy: Code(s): G93.1 - Anoxic brain damage, not elsewhere classified Status: Acute Assessment and Plan: Secondary to prolonged down time with hypoperfusion due to VFib arrest. (6) Lactic acidosis: Code(s): E87.2 - Acidosis Status: Acute Assessment and Plan: Secondary to cardiac arrest/shock with significant tissue hypoxia and hypoperfusion. (7) Macrocytic anemia: Code(s): D53.9 - Nutritional anemia, unspecified Status: Acute Assessment and Plan: Monitor hemoglobin and hematocrit and transfuse if indicated. (8) Elevated LFTs: Code(s): R79.89 - Other specified abnormal findings of blood chemistry Status: Acute Assessment and Plan: Most likely secondary to shock liver from cardiac arrest. (9) Chronic obstructive pulmonary disease: Code(s): J44.9 - Chronic obstructive pulmonary disease, unspecified Status: Acute Assessment and Plan: She has been started on scheduled bronchodilators. (10) Hypertension: Code(s): I10 - Essential (primary) hypertension Status: Acute Assessment and Plan: Patient is hypotensive . (11) Drug abuse: Code(s): F19.10 - Other psychoactive substance abuse, uncomplicated Status: Acute Assessment and Plan: Abuse of [id number] pseudoephedrine, taking more than the recommended daily dose. (12) Nicotine dependence: Code(s): F17.200 - Nicotine dependence, unspecified, uncomplicated Status: Acute Assessment and Plan: Heavy smoker, up to 2.5 packs of cigarettes per day. Additional Plan Poor prognosis son by the bedside and is aware. Subjective Date/time seen: 07/01/20 16:32 Interval history: 59-year-old female smoker with COPD, hypercholesterolemia, and hypertension who presented to the emergency department earlier today via EMS from home in cardiac arrest. Pt temp is improved will be on bear hugger later. Pts pupils are Pupils are fixed, unresponsive, appears to have sustained an anoxic brain injury Review of Systems Review of Systems: ROS unobtainable: Yes unobtainable due to medical condition Exam Narrative: Exam Narrative: General: Acutely ill-appearing female unresponsive in bed. Neck: Supple. No JVD or bruits. Respiratory: Intubated on mechanical ventilation. Cardiovascular: Faint heart sounds Gastrointestinal: Abdomen is soft and nondistended . Neurological: Unresponsive. Absent corneal, cough, and gag reflexes. Unable to elicit DTRs. Psychiatric: Unable to assess as patient is unresponsive. Objective Data Vital Signs Vital Signs: Vital Signs - 24 hr 06/30/20 16:45 06/30/20 16:46 06/30/20 16:50 Temperature 33.2 C L Pulse Rate 78 74 76 Respiratory Rate 24 H Blood Pressure 47/32 L 117/2
[2020-07-01 16:35] LABS: Glucose Point of Care 75 (65-105)
[2020-07-01] MEDS: SODIUM BICARBONATE 8.4% 100 MEQ in DEXTROSE 5% 1,000 ML 1,000 ML IV CONT (17:29)
[2020-07-01 17:45] LABS: Glucose Point of Care 168 (65-105)
--- NOTE | 2020-07-01 18:00 | ECG_ITS ---
Measurements Intervals [place] Rate: 96 P: 78 [place]: 190 QRS: 69 QRSD: 102 T: 108 QT: 375 QTc: 474 Interpretive Statements SINUS RHYTHM WITH SINUS ARRHYTHMIA POSSIBLE LEFT ATRIAL ENLARGEMENT BORDERLINE ST-T WAVE ABNORMALITY- DIFFUSE LEADS BASELINE ARTIFACT- I, II, III, AVR, AVL, AVF, V1-V6 BORDERLINE ECG Electronically Signed On 07-02-2020 7:08:55 CDT by Jer Corrales D.O.
[2020-07-01 18:34] LABS: Hematocrit 32.3 % (37.0-47.0); Hemoglobin 11.3 g/dL (12.0-15.0); Mean Corpuscular Hemoglobin 31.6 pg (26-34); Mean Corpuscular Volume 90.2 fl (80-100); Mean Platelet Volume 9.5 fl (7.4-10.4); Platelet Count Result 170 k/mm3 (150-375); Red Blood Count 3.58 M/mm3 (4.2-5.4); Red Cell Distribution Width 11.8 % (11.5-14.5); White Blood Count 9.2 K/mm3 (4.5-10.0)
[2020-07-01 18:40] LABS: Glucose Point of Care 134 (65-105)
[2020-07-01 18:47] LABS: INR 1.7; Prothrombin Time 20.4 Seconds (11.1-14.7)
[2020-07-01 18:48] LABS: Partial Thromboplastin Time 34.5 SECONDS (22.3-36.8)
[2020-07-01 19:08] LABS: Creatine Kinase 12283 U/L (30-135)
[2020-07-01 19:28] LABS: Glucose Point of Care 107 (65-105)
[2020-07-01 20:17] LABS: Glucose Point of Care 103 (65-105)
[2020-07-01 20:58] LABS: Glucose Point of Care 100 (65-105)
[2020-07-01 22:11] LABS: Glucose Point of Care 95 (65-105)
[2020-07-01 23:12] LABS: Glucose Point of Care 103 (65-105)
[2020-07-02] VITALS (18 sets, daily range): BP systolic 107–143; BP diastolic 50–64; PULSE 87–126; RESP 21–30; TEMP 32.7–37.3; O2SAT 96–100
[2020-07-02] LABS: Glucose Point of Care 92 (65-105)
[2020-07-02 01:02] LABS: Glucose Point of Care 97 (65-105)
[2020-07-02 02:09] LABS: Glucose Point of Care 76 (65-105)
[2020-07-02 03:08] LABS: Glucose Point of Care 82 (65-105)
[2020-07-02 03:52] LABS: Hemoglobin 11.5 g/dL (12.0-15.0); Mean Corpuscular HGB Conc 35.9 g/dl (32-36); Mean Corpuscular Hemoglobin 32.3 pg (26-34); Mean Corpuscular Volume 89.9 fl (80-100); Mean Platelet Volume 9.8 fl (7.4-10.4); Platelet Count Result 135 k/mm3 (150-375); Red Blood Count 3.56 M/mm3 (4.2-5.4); White Blood Count 8.1 K/mm3 (4.5-10.0)
[2020-07-02 04:01] LABS: Glucose Point of Care 81 (65-105)
[2020-07-02 04:08] LABS: Albumin Level 2.8 g/dL (3.5-5.1); Alkaline Phosphatase 215 U/L (38-126); Anion Gap 8 mmol/L (8-16); Bilirubin,Total 1.2 mg/dL (0.2-1.3); Blood Urea Nitrogen 40 mg/dL (7-17); Calcium 6.3 mg/dL (8.4-10.2); Carbon Dioxide 38 mmol/L (22-30); Chloride 81 mmol/L (98-107); Estimated CRCL calculation 18 ml/min; Estimated Glomerular Filt Rate 17; Glucose 93 mg/dL (65-105); Magnesium 2.1 mg/dL (1.6-2.3); Phosphorus 7.3 mg/dL (2.5-4.5); Potassium 4.1 mmol/L (3.4-5.0); Sodium 127 mmol/L (137-145)
[2020-07-02 04:09] LABS: Lactic Acid Reflex 4.3 mmol/L (0.7-2.1)
[2020-07-02] MEDS: SODIUM BICARBONATE 8.4% 100 MEQ in DEXTROSE 5% 1,000 ML 1,000 ML IV CONT (04:39)
[2020-07-02 04:42] LABS: Alveolar/Arterial O2 Gradient 77.7 mmHg; Base Excess ABG 5.4 mEq/l (+/-2.0); Carboxyhemoglobin 2.9 % THb (0-2.0); Device VENTILATOR; Fractional Inspired Oxygen 30 %; Methemoglobin ABG 0.1 %THb (0-1.5); Oxygen Content ABG 15.2 %vol (16.0-22.0); Oxygen Saturation ABG 95.4 % (95.0-100.0); Oxyhemoglobin 92.2 % THb (90.0-100.0); PCO2 ABG 49.9 mmHg (35.0-45.0); PO2 ABG 77.6 mmHg (80.0-100.0); PO2 FiO2 Ratio Arterial Blood 2.59 %; Reduced Hemoglobin 4.8 %THb (0-5.0); Site Drawn ARTLINE; Total Hemoglobin 11.7 g/dL (12.0-18.0); pH ABG 7.411 (7.350-7.450)
[2020-07-02 04:43] LABS: Arterial Blood Gas PEEP 5 cmH2O; Arterial Blood Gas Tidal Volume 450 ml; Arterial Blood Gas Vent Mode CMV; Arterial Blood Gas Ventilator rate 25 /MIN
[2020-07-02 04:57] LABS: Alanine Aminotransferase > 3750 U/L (4-35); Creatine Kinase 13316 U/L (30-135)
[2020-07-02 05:04] LABS: Glucose Point of Care 94 (65-105)
[2020-07-02] MEDS: CENTRAL LINE FLUSH 10 ML IV PUSH (05:26)
[2020-07-02 05:39] LABS: Aspartate Amino Transferase > 7500 U/L (14-36)
[2020-07-02 06:04] LABS: Glucose Point of Care 82 (65-105)
[2020-07-02 06:38] LABS: Glucose Point of Care 73 (65-105)
[2020-07-02 06:50] LABS: Reflex Lactic Acid Yes or No Add Lactic
[2020-07-02] MEDS: ALBUMIN HUMAN 25% 25 GM/100 ML 100 ML IVPB (07:55)
[2020-07-02] MEDS: SODIUM CHLORIDE 0.9% IV 1,000 ML 100 ML IV CONT (07:56)
[2020-07-02] MEDS: CALCIUM CHLOR 1,000MG/100ML NS 1,000 MG/100 ML BAG 100 MG IVPB (07:56)
[2020-07-02] MEDS: SODIUM CHLORIDE 0.9% IV 500 ML IV CONT (07:57)
[2020-07-02] MEDS: FUROSEMIDE INJ 40 MG/4 ML VIAL 80 MG IV PUSH (08:06)
[2020-07-02] MEDS: PANTOPRAZOLE SODIUM IV 40 MG VIAL IV PUSH (08:08)
[2020-07-02] MEDS: ASPIRIN 325 MG TABLET PO (08:15)
[2020-07-02] MEDS: DEXTROSE 50% 25 GM/50 ML SYRINGE IV PUSH ×2 (08:30→10:10)
[2020-07-02 08:44] LABS: Glucose Point of Care 43 (65-105)
[2020-07-02 08:44] LABS: Glucose Point of Care 99 (65-105)
[2020-07-02 08:44] LABS: Glucose Point of Care 39 (65-105)
--- NOTE | 2020-07-02 08:44 | WPDINTPN ---
Progress Note: A&P Assessment and Plan (1) Respiratory failure: Code(s): J96.90 - Respiratory failure, unspecified, unspecified whether with hypoxia or hypercapnia Status: Acute Assessment and Plan: ABG and chest x-ray reviewed Continue mechanical ventilation Repeat chest x-ray reviewed On empiric Zosyn for suspected aspiration (2) Anoxic brain injury: Code(s): G93.1 - Anoxic brain damage, not elsewhere classified Status: Acute Assessment and Plan: CT shows loss of phelan-white differentiation and clinical exam consistent with severe anoxic injury Patient is on TTM protocol. Rewarming was started around 4 this morning and patient is being rewarming to normal temperature Head CT reviewed EGD planned for today Neurology consulted Patient appears to have sustained severe anoxic brain injury concerning CT scan and her clinical exam Continue mannitol through today. Unable to check osmolality as it is a send out test (3) ST elevation (STEMI) myocardial infarction: Onset Date: ~06/30/20 Code(s): I21.3 - ST elevation (STEMI) myocardial infarction of unspecified site Status: Acute Assessment and Plan: Heparin infusion was discontinued due to high risk of brain hemorrhage from anoxic brain injury with loss of phelan-white matter differentiation on the CT Aspirin had to be stopped because of GI bleed. Will resume today Hypotensive and not a candidate for beta-sejal Cardiology decided not to pursue emergent PCI due to anoxic injury Echocardiogram done Summary 1. Complete two-dimensional, color flow and Doppler transthoracic echocardiogram is performed. 2. Left ventricular systolic function is mildly reduced, estimated at 45-50%. There is hypokinesis of the mid and basal inferior and basal inferolateral kerns. 3. Left ventricular chamber dimension is normal. 4. There is mildly increased left ventricular wall thickness. 5. The left ventricular diastolic function is grade I diastolic dysfunction. 6. There is mild aortic valve regurgitation. 7. There is mild mitral valve regurgitation. 8. There is mild tricuspid valve regurgitation. 9. No pulmonary hypertension, estimated pulmonary arterial systolic pressure is 25 mmHg. (4) Cardiac arrest: Code(s): I46.9 - Cardiac arrest, cause unspecified Status: Acute Assessment and Plan: VFib cardiac arrest likely secondary to [place] No recurrence of arrhythmias while in ICU (5) Shock: Code(s): R57.9 - Shock, unspecified Status: Acute Assessment and Plan: Sepsis versus cardiogenic Echocardiogram has been done and reviewed Continue Levophed Patient is on IV fluids. Art line waveform shows pulse pressure variation will give 500 cc bolus and continue infusion Culture negative to now On empiric Zosyn for aspiration pneumonia (6) VF (ventricular fibrillation): Code(s): I49.01 - Ventricular fibrillation Status: Acute Assessment and Plan: No recurrence since arrival to ICU Monitor and treat electrolytes (7) Shock liver: Code(s): K72.00 - Acute and subacute hepatic failure without coma Status: Acute Assessment and Plan: Monitor LFTs Normal ammonia Given vitamin K (8) GI bleed: Code(s): K92.2 - Gastrointestinal hemorrhage, unspecified Status: Acute Assessment and Plan: Heparin and aspirin discontinued in the beginning Hemoglobin has been stable Continue IV PPI q.12 hours Resume aspirin and DVT prophylaxis Lovenox (9) YOANA (acute kidney injury): Code(s): N17.9 - Acute kidney failure, unspecified Status: Acute Assessment and Plan: Likely ATN secondary to cardiac arrest Renal ultrasound shows mild right hydronephrosis but no stone Creatinine and BUN is marginally worse as compared to yesterday IV fluids to be continue Monitor urine output Lasix IV today Replace calcium Hemodialysis not indicated at this time Consu
[2020-07-02] MEDS: DEXTROSE 5%/0.9% SOD CHL 1,000 ML 100 ML IV CONT (09:25)
[2020-07-02 10:28] LABS: Glucose Point of Care 46 (65-105)
--- NOTE | 2020-07-02 11:11 | PM.PNCARD ---
Progress Note: A&P Additional Plan 1-cardiac arrest with VFib. 2-anoxic brain injury 8-PZ-nbxrrxkry DC. 4-elevated liver enzymes 5-hypoglycemia this morning 59-year-old woman with: Out of hospital ventricular fibrillation arrest with ECG compatible with ST-elevation DC following resuscitation. Unfortunately her down time was long enough where it seemed obvious she was not a candidate for emergency PCI is there is no realistic hope for neurological recovery period. CT scan is consistent with severe anoxic injury. At this point aggressive support will be continued and neurological outcome will guide further decision process. Prognosis for recovery appears to be extremely poor her pupils this morning shows inequal concerning for brain herniation Replenish blood sugar Subjective Date/time seen: Date of service 07/02/20 11:11 Interval history: 59-year-old female smoker with COPD, hypercholesterolemia, and hypertension who presented to the emergency department earlier today via EMS from home in cardiac arrest. Date of service07/02/2020-she remains unresponsive. I spoke to the neurologist today and he told me that her pupils are unequal and he suspects brain herniation. She is on Levophed 1 jose manuel Review of Systems Review of Systems: ROS unobtainable: Yes unobtainable due to endotracheal tube, unobtainable due to medical condition and unobtainable due to mental status Constitutional: Constitutional: Reports as per HPI Eyes: Eyes: Reports as per HPI ENT: Reports as per HPI Respiratory: Respiratory: Reports as per HPI Gastrointestinal: Gastrointestinal: Reports as per HPI Genitourinary: Genitourinary: Reports as per HPI Musculoskeletal: Musculoskeletal: Reports as per HPI Integumentary/Breasts: Skin/Breast: Reports as per HPI Neurologic: Reports as per HPI Psychiatric: Psychiatric: Reports as per HPI Endocrine: Endocrine: Reports as per HPI Hematologic/Lymphatic: Hematologic/Lymphatic: Reports as per HPI Allergic/Immunologic: Allergic/Immunologic: Reports as per HPI Exam Narrative: Exam Narrative: General: White female, unresponsive, eyes open, pupils fixed, dilated no spontaneous respirations noted or response to physical and verbal stimuli. Cyanotic, mottled periphery otherwise well developed during active CPR and bagged respirations Head: atraumatic, normocephalic Eyes: blinks Ears/Nose: external inspection of ears and nose were grossly normal Mouth/Throat: dry, dusky face and mucosa Neck: supple, no jugular venous distention or carotid bruits, thyroid nonpalpable, trachea midline. Cardiac: distant heart sounds, regular rate and rhythm, soft S1, S2, no appreciable murmurs, rubs or gallops Lungs: diminished breath sounds diffusely. No obvious rales, wheezes, or rhonchi. Abdomen: Soft, nondistended, hypoactive bowel sounds throughout. Unable to appreciable organomegaly, no rigidity noted. Abdominal aorta nonpalpable, no bruits. Extremities: No edema. Diffuse purplish discoloration of extremities with lacy mottled appearance of lower extremities Extremities cool to touch Skin: cool dusky appearance as above Musculoskeletal: Completely unresponsive, unable to assess Vascular: Carotid upstrokes thready bilaterally, no radial, femoral, DP or PT pulses appreciable Neurologic: Unresponsive, unable to assess as above Pscyhiatric: Unresponsive, unable to assess Const: Other: Intubated unresponsive white female HENMT: Mouth: Yes moist mucous membranes Eyes: Sclera: sclerae normal Neck: Neck: supple and no JVD Resp: Other: Some central rhonchi are noted otherwise relatively good breath sounds good aeration bilaterally Cardio: Rate: regular rate Rhythm: regular rhythm Skin: Other: Mottled Neuro: Other: Unresponsive/obtunded Extrem: Other: No edema good distal pulses Objective Data Vital Signs Vital Signs: Vital Signs - 24 hr 07/01/20 11:24
[2020-07-02] MEDS: ENOXAPARIN 30 MG/0.3 ML SYRINGE SUB-Q (11:17)
--- NOTE | 2020-07-02 11:19 | PC.NURSE ---
Family conference with Dr. Cedeno and Pastor Hackett.
[2020-07-02 11:20] LABS: Glucose Point of Care 104 (65-105)
--- NOTE | 2020-07-02 11:20 | PCDIET ---
ICU Rounding Note: MD order to start Jevity 1.2 at 20mL/hr with goal of 40mL/hr today. Water flushes ordered at 30mL every 4 hours. If patient tolerates tube feeding, will likely recommend further advancing in next 24-48 hours. Agree with lower initial rate due to reported abdominal distention and ileus shown on KUB 07/01/20. Last recorded weight is 71.4kg which is slightly increased from last review. +I/O. Bowel Motility: Small liquid BM overnight. RN reports abdominal distention. Labs Reviewed: Hgb (11.5), Hct (32.0), BUN (40), Cr (2.8), Na (127), Alb (2.8), Ca (6.3) Meds Noted: IV Albumin, Zosyn, Calcium Chloride, NS at 100mL/hr, Propofol (rate of 2.38mL/hr provides 62kcal per day), Mannitol, Lasix, Levophed Additional Notes: Patient also received 500mL NS bolus. No documented skin breakdown. Following daily in ICU rounds. Assessing/reassessing every Monday/Monday.
--- NOTE | 2020-07-02 11:24 | P.PNCROSS_ITS ---
Event Note Event Note Event Note: Family Meeting I met with patient's earlier at bedside and updated him with patient's status including severe anoxic injury respiratory failure acute kidney injury, echocardiogram report and shock liver. I also explained him possible outcomes secondary to her anoxic injury and also explained him the plan for today including EEG and neurology consult. He told me that patient would not want to be on life support as per his understanding of her wishes. He wanted her to get better but he can see that she has not made any progress since coming to the hospital. I explained him option of comfort care. He met with hospital rip/mould operator Lew and later went and discussed with his son and daughter and other family members. Patient and other family members including her children have decided , in accordance with pt's wishes, to discontinue all medical therapy and institute comfort measures only. I have confirmed this with patient's daughter and and explained them the comfort care procedure. I will use opioids, anxiolytics and other agents on as needed basis to promote comfort and discontinue all medical therapy, lab testing and invasive monitoring. Additional critical care time spent in managing patient's care, discussion with a physician, family meeting and coordinating care 60 minutes
[2020-07-02] MEDS: MORPHINE SULFATE (*CRX) 4 MG/ML INJ IV PUSH ×2 (11:37→15:42)
[2020-07-02] MEDS: LORazepam INJ (*CRX) 2 MG/ML VIAL IV PUSH ×2 (11:38→15:42)
[2020-07-02] MEDS: MORPHINE SULFATE INJ (*CRX) 10 MG/ML AMP 5 MG IV PUSH (13:14)
[2020-07-02 13:55] LABS: Amphetamine Screen Urine Negative (Negative)
--- NOTE | 2020-07-02 16:26 | WPDNEURCNPN ---
Assessment and Plan Assessment and plan (1) Anoxic brain injury: Code(s): G93.1 - Anoxic brain damage, not elsewhere classified Status: Acute Additional Plan is status post cardiopulmonary arrest with significant brain dysfunction patient has just come off the hypothermia EEG is being done to evaluate the neurological status further recommendation will be made accordingly Consult date: 07/02/20 Time Seen: 10:00 HPI: Angelia Huitron is a 59 year old female admitted to the hospital through the emergency room for cardiac arrest in addition to ongoing history of 1. COPD with smoking 2. Hypercholesterolemia 3. Hypertension. Patient reportedly presented to Emergency Department earlier via EMS from home in cardiac arrest she was doing fairly well in [place] where he came from she fatigued majority of the time and relied on energy drinks at least 6 to 8 per day in addition to pseudoephedrine 3 to 4 times per day at a higher dose than recommended upon return from [place] patient told her sister that she was feeling unwell and her whole body was shaking she complained of intermittent sternum pain and dizziness while she was sitting in a chair or lying down the majority of the time she also complained of shortness of breath in any event she was last seen in her usual state of health by our in the morning when he got home from working over night she made him something for lunch and retire to bed a couple of hours later while on the telephone with her daughter the patient reported she was having episodes of dizziness and during the conversation her speech became slurred and she stopped responding daughter attempted to call the patient and when he did not answer she call 911 around 25 minutes had passed before the patient daughter heard [place]jo the EMS personnel in the background her was also wakened to the sound of EMS [facility] she was found unresponsive on the couch in receive multiple defibrillation for VFib eventuality ROS see was achieved and 12 lead EKG demonstrated sinus bradycardia with ST elevation in the inferior leads with reciprocal changes in the anterior lateral leads as well I STEMI was called in the field and and route to the hospital she went into asystole and CPR once again resume continued in the emergency department she went into asystole for ROS see was once again obtain by this time it was nearly 1hour since she 1st became unresponsive Review of Systems Review of Systems: All systems reviewed & are unremarkable except as noted in HPI and below PMFSH Past Medical History Medical History Caffeine abuse Patient drinks 6 to 8 energy drinks each day. Chronic obstructive pulmonary disease Drug abuse The patient abuses [id number] pseudoephedrine and doses herself more than recommended 3 to 4 times per day. Hypercholesterolemia Hypertension Nicotine dependence Surgical History Surgical History History of bilateral cataract extraction Family History Family History Mother Acute myocardial infarction ACS (acute coronary syndrome) Cerebrovascular accident Uterine cancer Cervical cancer Daughter AICD (automatic cardioverter/defibrillator) present Uterine cancer Father COPD (chronic obstructive pulmonary disease) Sibling Uterine cancer Cervical cancer Social History Social History Social History: The patient lives in [place] with her . She has 2 children. 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 Smokes up to 2.5 packs of cigarettes per day. 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 No illicit drug use. Her Pb is her surrogate decision maker. Code status: Full code. Spiritual care concerns: No Meds Home Medications and
--- NOTE | 2020-07-02 17:36 | PM.DDS ---
Discharge Sum: Prov Provider Primary care physician: Valerie Cool, [employer]MING [employer]OL INSTALLER Admitting provider: Jhon Nelson MD Consults: 06/30/20 Consult to Physician Routine Comment: Consulting Provider: Franklyn Cedeno Reason for consultation: Cardiac arrest Has provider been notified: Yes 07/01/20 Consult to Physician Routine Comment: DR. OROSCO CONTACTED Consulting Provider: Guille Rivas yard caller/MD group to consult: Neurology Reason for consultation: Anoxic Brain Injury Has provider been notified: Yes 07/02/20 Consult to Physician Routine Comment: OFFICE NOTIFIED OF CONSULT Consulting Provider: Ender Valentine yard caller/MD group to consult: Nephrology Reason for consultation: YOANA Has provider been notified: Yes Discharge Sum: Diag Contributing Factors (1) Cardiac arrest with ventricular fibrillation: (2) ST elevation (STEMI) myocardial infarction: (3) Respiratory failure: (4) Shock: (5) Anoxic encephalopathy: (6) Lactic acidosis: (7) Macrocytic anemia: (8) Elevated LFTs: (9) Chronic obstructive pulmonary disease: (10) Hypertension: (11) Drug abuse: (12) Nicotine dependence: Discharge Sum: Summary Date and Time Date of admission: 59-year-old female smoker with COPD, hypercholesterolemia, and hypertension who presented to the emergency department earlier today via EMS from home in cardiac arrest. Pt will be on bear hugger later. Pts pupils are Pupils are fixed, unresponsive, appears to have sustained an anoxic brain injury. CT shows loss of phelan-white differentiation and clinical exam consistent with severe anoxic injury Patient is on TTM protocol. Pt had mannitol, rewarming. Pt received Vasopressor for BP support and empiric zosyn for Aspiration pneumonia. Pt seen by cardiology, ICU and Neurology. See ICU notes for full details. Family requested withdrawal of care and patient 07/02/2020 at 1615. Additional Data Attending physician: Progress Note: A&P Assessment and Plan (1) Cardiac arrest with ventricular fibrillation: Code(s): I46.9 - Cardiac arrest, cause unspecified; I49.01 - Ventricular fibrillation Status: Acute Assessment and Plan: Outside hospital VFib arrest with prolonged down time Her neurologic exam is concerning for anoxic brain injury. Family requested withdrawal of care and patient 07/02/2020 at 1615 (2) ST elevation (STEMI) myocardial infarction: Onset Date: ~06/30/20 Code(s): I21.3 - ST elevation (STEMI) myocardial infarction of unspecified site Status: Acute Assessment and Plan: EKG demonstrated ST elevation inferior leads with reciprocal changes in the anterolateral leads. Family requested withdrawal of care and patient 07/02/2020 at 1615 (3) Respiratory failure: Code(s): J96.90 - Respiratory failure, unspecified, unspecified whether with hypoxia or hypercapnia Status: Acute Assessment and Plan: Acute respiratory failure secondary to cardiac arrest. Family requested withdrawal of care and patient 07/02/2020 at 1615 (4) Shock: Code(s): R57.9 - Shock, unspecified Status: Acute Assessment and Plan: Cardiogenic shock, currently on epinephrine drip to maintain adequate blood pressures. Family requested withdrawal of care and patient 07/02/2020 at 1615 (5) Anoxic encephalopathy: Code(s): G93.1 - Anoxic brain damage, not elsewhere classified Status: Acute Assessment and Plan: Secondary to prolonged down time with hypoperfusion due to VFib arrest. Family requested withdrawal of care and patient 07/02/2020 at 1615 (6) Lactic acidosis: Code(s): E87.2 - Acidosis Status: Acute Assessment and Plan: Secondary to cardiac arrest/shock with significant tissue hypoxia and hypoperfusion. Family requested withdrawal of care and patient 07/02/2020 at 1615 (7) Macrocytic anemia: Code(s): D53.9 - Nutritional
== END 2020-07-02 16:15 | disposition expired ==
LOC: ANHED 19:33 → ANHICU 21:48
PROVIDERS: Emergency Medicine; Internal Medicine; Physician Assistant; Admitting Provider Internal Medicine; Emergency Provider Emergency Medicine; PCP Nurse Practitioner Adult Health; Visit Provider Family Medicine
DX: I21.3 ST elevation (STEMI) myocardial infarction of unspecified site (principal); K72.00 Acute and subacute hepatic failure without coma; J96.00 Acute respiratory failure, unspecified whether with hypoxia or hypercapnia; N17.0 Acute kidney failure with tubular necrosis; E87.2 Acidosis; G93.1 Anoxic brain damage, not elsewhere classified; K92.2 Gastrointestinal hemorrhage, unspecified; M62.82 Rhabdomyolysis; I49.01 Ventricular fibrillation; I46.2 Cardiac arrest due to underlying cardiac condition; R57.0 Cardiogenic shock; D69.6 Thrombocytopenia, unspecified; D53.9 Nutritional anemia, unspecified; E16.2 Hypoglycemia, unspecified; J44.9 Chronic obstructive pulmonary disease, unspecified; I10 Essential (primary) hypertension; E78.00 Pure hypercholesterolemia, unspecified; F19.10 Other psychoactive substance abuse, uncomplicated; F17.210 Nicotine dependence, cigarettes, uncomplicated; Z98.42 Cataract extraction status, left eye; Z98.41 Cataract extraction status, right eye
CPT/HCPCS: 36415; 36600; 70450; 71045; 74018; 76775; 80053; 80307; 81001; 82140; 82375; 82550; 82607; 82728; 82746; 82805; 82948; 83036; 83050; 83540; 83550; 83605; 83735; 83880; 83930; 84100; 84443; 84484; 85025; 85027; 85610; 85730; 87040; 87086; 93005; 93306; 94003; 96365; 96366; 96375; 99291; A9270; C1751; C9113; J0171; J0282; J0461; J1644; J1650; J1940; J2060; J2270; J2543; J2704; J3430; J7030; J7040; J7042; J7060; J7070; J7120; P9047